=== PATIENT | male | born 1995 | race Two or more races ===

== ENCOUNTER 2019-10-04 00:50 | Inpatient (IN) | payer OTHER ==
[~2019-10-04] VITALS: Ht 165.1 cm; Wt 71.2 kg
[2019-10-04] MEDS ORDERED: HUMULIN 70100 UNIT/2 (01:04)
== END 2019-10-07 16:19 | disposition home or self-care (01) | DRG 639 ==
LOC: ER 00:50 → ICU 09:54 → ICU-2 09:54 → ICU 11:02 → SURH 10-06 14:58
PROVIDERS: ADMIT Internal Medicine
PROC: 4A033R1 Measurement of Arterial Saturation, Peripheral, Percutaneous Approach (ICD-10-PCS; principal; 2019-10-04)
DX: E10.10 Type 1 diabetes mellitus with ketoacidosis without coma (principal); E86.0 Dehydration; E87.8 Other disorders of electrolyte and fluid balance, not elsewhere classified; Z79.4 Long term (current) use of insulin